=== PATIENT | female | born 2000 | race Hispanic/Latino ===

== ENCOUNTER 2020-08-19 13:32 | Emergency (ER) | payer BC ==
--- OUTSIDE RECORDS SUMMARY | 2020-08-19 13:35 | XMS REPORT | Continuity of Care Document ---
:2000 Author Organization [facility] t Address [address] [place] [address] Care Team Providers Name Role Phone Lab, Fam Pob I Attending Clinician Unavailable Elizabeth WOLFE, H Attending Clinician Jamarcus TONY, T Attending Clinician Unavailable Pcp, Does Not Have A Attending Clinician Problems This patient has no known problems. Allergies, Adverse Reactions, Alerts This patient has no known allergies or adverse reactions. Medications This patient has no known medications. Procedures This patient has no known procedures. Encounters Start End Encounter Admission Attending Care Care Encounter Source Date/Time Date/Time Type Type Clinicians Facility Department ID 2020-05-20 2020-05-20 Laboratory Lab, [facility] [id number] 11:18:14 11:38:14 Only Fam Pob I Health [id number] [place] [id number] Professio [phone] nal 044 [address] One 2020-05-02 2020-05-02 Laboratory Lab, [facility] 1..[id number] 16:02:38 16:22:38 Only Fam Pob I Health [id number] [place] [id number] Professio [phone] nal 044 [address] One 2020-04-22 2020-04-22 Laboratory Lab, [facility] [id number] 13:18:43 13:38:43 Only Fam Pob I Health [id number] [place] [id number] Professio [phone] nal 044 Office [address] One 2020-04-05 2020-04-05 Letter RANDEE Johnson [id number] 00:00:00 00:00:00 (Out) Jamie VAUGHN [id number] HOSPITAL [id number] 2020-04-05 2020-04-05 Telephone Lab, [facility] [id number] 00:00:00 00:00:00 Fam Pob I Health [id number] [place] [id number] Professio [phone] nal 044 Office [address] One 2020-04-02 2020-04-02 Letter RANDEE Ricketts [id number] 00:00:00 00:00:00 (Out) Angelita VAUGHN [id number] HOSPITAL [id number] 2020-04-02 2020-04-02 Telephone PcpRANDEE [id number] 00:00:00 00:00:00 Patient JOHANA [id number] Does Not HOSPITAL [id number] Have A [id number] 2020-03-31 2020-03-31 Laboratory Lab, [facility] [id number] 16:47:48 17:07:48 Only Fam Pob I Health [id number] [place] [id number] Professio [phone] nal 044 Office [address] One Results This patient has no known results.
--- NOTE | 2020-08-19 15:13 | RAD REPORT ---
EXAM DESCRIPTION: RAD - Chest Pa And Lat (2 Views) - 08/19/2020 2:19 pm CLINICAL HISTORY: CHEST PAIN COMPARISON: None TECHNIQUE: Frontal and lateral views of the chest were obtained. FINDINGS: The lungs are clear. Heart size is normal and central vasculature is within normal limit s. No pleural effusion or pneumothorax seen. No acute bony finding noted. No aortic abnormality. IMPRESSION: No acute cardiopulmonary process.
[2020-08-19 16:24] LABS: Absolute Lymphocytes (CBC) 1.5 K/uL (0.7-4.9); Basophils % 0.7 % (0-1.3); Hematocrit 41.3 % (36.0-45.0); Lymphocytes % 29.5 % (15.3-44.8); MPV 8.3 fL (7.6-11.3); RBC Red Blood Cell Count 4.41 M/uL (3.86-4.86)
[2020-08-19 16:43] LABS: BUN Blood Urea Nitrogen 9 mg/dL (7-18); Bicarbonate 29 mmol/L (21-32); Glucose Level 90 mg/dL (74-106); Sodium Level 141 mmol/L (136-145); Troponin (Emerg Dept Use Only) < 0.02 ng/mL (0.0-0.045)
--- NOTE | 2020-08-19 17:10 | EDPHYS ---
Physician Documentation [facility] Name: Terrance Ko Age: 19 yrs Sex: Female : 2000 Arrival Date: 08/19/2020 Time: 13:35 Bed 14 Private MD: ED Physician Hussein Little HPI: 08/19 17:13 This 19 yrs old Female presents to ER via Ambulatory with complaints of Chest kb Pain. 17:14 The patient or guardian reports chest pain that is located primarily in the anterior kb chest wall, left. The pain does not radiate. Associated signs and symptoms: The patient has no apparent associated signs or symptoms. The chest pain is described as sharp. Duration: The patient or guardian reports multiple episodes, that are intermittent, with no pattern. Modifying factors: The symptoms are alleviated by nothing. the symptoms are aggravated by nothing. Severity of pain: At its worst the pain was moderate in the emergency department the pain has resolved. The patient has not experienced similar symptoms in the past. The patient has not recently seen a physician. Pt reports intermittent sharp pains to left side of chest that last a few minutes at a time. Pains started on 07/19/20. Last occurrence was yesterday. No pains today. no associated symptoms. Pt reports she has been under a lot of stress lately. No medical history. Father had MA in February 2020. Historical: - Allergies: 13:46 No Known Allergies; tw2 - Home Meds: 13:46 None [Active]; tw2 - PMHx: 13:46 None; tw2 - PSHx: 13:46 None; tw2 - Immunization history:: Adult Immunizations. - Social history:: Smoking status: . ROS: 17:13 Constitutional: Negative for fever, chills, and weight loss, Respiratory: Negative for kb shortness of breath, cough, wheezing, and pleuritic chest pain, Abdomen/GI: Negative for abdominal pain, nausea, vomiting, diarrhea, and constipation, MS/Extremity: Negative for injury and deformity, Skin: Negative for injury, rash, and discoloration, Neuro: Negative for headache, weakness, numbness, tingling, and seizure. 17:13 Cardiovascular: Positive for chest pain, Negative for edema, orthopnea, palpitations, paroxysmal nocturnal dyspnea. Exam: 17:13 Constitutional: This is a well developed, well nourished patient who is awake, alert, kb and in no acute distress. Head/Face: Normocephalic, atraumatic. Chest/axilla: Normal chest wall appearance and motion. Cardiovascular: Regular rate and rhythm with a normal S1 and S2. No gallops, murmurs, or rubs. No pulse deficits. Respiratory: Respirations even and unlabored. No increased work of breathing, no retractions or nasal flaring. Abdomen/GI: Soft, non-tender. No distention Skin: Warm, dry with normal turgor. Normal color. MS/ Extremity: Pulses equal, no cyanosis. Neurovascular intact. Full, normal range of motion. Neuro: Awake and alert, GCS 15, oriented to person, place, time, and situation. Moves all extremities. Normal gait. 17:13 ECG was reviewed by the Attending Physician. Vital Signs: 13:42 BP 129 / 90; Pulse 74; Resp 18; Temp 97.9(TE); Pulse Ox 100% on R/A; Weight 68.04 kg tw2 (R); 15:27 BP 136 / 70; Pulse 78; Resp 14; Pulse Ox 99% on R/A; vg1 16:24 BP 129 / 73; Pulse 74; Resp 14; Pulse Ox 100% on R/A; vg1 17:41 BP 125 / 78; Pulse 80; Resp 14; Pulse Ox 100% on R/A; vg1 MDM: 15:23 Patient medically screened. kb 17:11 Data reviewed: vital signs, nurses notes. Data interpreted: Pulse oximetry: on room air kb is 100 %. Interpretation: normal. 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 08/19 15:43 Order name: CBC with Diff; Complete Time: 16:28 kb 08/19 15:43 Order name: Basic Metabolic Panel; Complete Time: 16:48 kb 08/19 13:48 Order name: EKG; Complete Time: 13:49 kb 08/19 13:48 Order name: Chest Pa And Lat (2 Views) XRAY; Complete Time: 15:23 kb 08/19 15:43 Order name: Troponin (emerg Dept Use Only); Complete Time: 16:48 kb 08/19 15:43 Order name: D-Dimer; Complete Time: 16:41 kb 08/19 13:48 Order name: EKG - Nurse/Tech; Complete Time: 15:28 kb EC:13 Rate is 84 beats/min. Rhythm is regular. QRS [place] is Normal. [place] interval is normal at kb 144 msec. QRS interval is normal at 76 msec. QT interval is normal at 340 msec. Administered Medications: No medications were administered Disposition: 08/20 08:01 Co-signature as Attending Physician, Hussein Little MD I agree with the assessment and kdr plan of care. Disposition: 08/19/20 17:10 Discharged to Home. Impression: Chest pain, unspecified. - Condition is Stable. - Discharge Instructions: Nonspecific Chest Pain, [id number]. - Medication Reconciliation Form, Thank You Letter, Antibiotic Education, Prescription Opioid Use form. - Follow up: Emergency Department; When: As needed; Reason: Worsening of condition. Follow up: Private Physician; When: 2 - 3 days; Reason: Recheck today's complaints, Continuance of care, Re-evaluation by your physician. Signatures: Dispatcher [employer] EDND Brittnee Colin, FIELD REPRESENTATIVE-C FIELD REPRESENTATIVE-Hussein Fuentes MD MD kdr Sandy Ibrahim, RN RN tw2 Chelita Villanueva RN RN vg1 Corrections: (The following items were deleted from the chart) 08/19 17:41 17:10 08/19/2020 17:10 Discharged to Home. Impression: Chest pain, unspecified. vg1 Condition is Stable. Forms are Medication Reconciliation Form, Thank You Letter, Antibiotic Education, Prescription Opioid Use. Follow up: Emergency Department; When: As needed; Reason: Worsening of condition. Follow up: Private Physician; When: 2 - 3 days; Reason: Recheck today's complaints, Continuance of care, Re-evaluation by your physician. kb
--- NOTE | 2020-08-19 17:10 | ER ---
Nurse's Notes [facility] Name: Terrance Ko Age: 19 yrs Sex: Female : 2000 Arrival Date: 08/19/2020 Time: 13:35 Bed 14 Private MD: Diagnosis: Chest pain, unspecified Presentation: 08/19 13:42 Chief complaint: Patient states: i have chest pain that started July 19, i felt tw2 pressure in the middle of my chest, it went away and then August 06 i got a dry cough and sore throat, and the sore throat went away, i took mucinex and drinking hot tea, where my heart is i got this twinge and it felt uncomfortable, and it happened again last night for 2 minutes. Coronavirus screen: At this time, the client does not indicate any symptoms associated with coronavirus-19. Ebola Screen: Patient denies travel to an Ebola-affected area in the 21 days before illness onset. Initial Sepsis Screen: Does the patient meet any 2 criteria? No. Patient's initial sepsis screen is negative. Does the patient have a suspected source of infection? No. Patient's initial sepsis screen is negative. Risk Assessment: Do you want to hurt yourself or someone else? Patient reports no desire to harm self or others. Onset of symptoms was August 19, 2020. 13:42 Method Of Arrival: Ambulatory tw2 13:42 Acuity: POLI 3 tw2 Triage Assessment: 13:46 General: Appears in no apparent distress. slender, well groomed, Behavior is calm, tw2 cooperative, appropriate for age. Pain: Complains of pain in chest. Cardiovascular: Reports chest pain, "it goes away, but the most it last is like 5 minutes so right now it is fine". Historical: - Allergies: 13:46 No Known Allergies; tw2 - Home Meds: 13:46 None [Active]; tw2 - PMHx: 13:46 None; tw2 - PSHx: 13:46 None; tw2 - Immunization history:: Adult Immunizations. - Social history:: Smoking status: . Screenin:27 Abuse screen: Denies threats or abuse. Nutritional screening: No deficits noted. vg1 Tuberculosis screening: No symptoms or risk factors identified. Fall Risk No fall in past 12 months (0 pts). No secondary diagnosis (0 pts). IV access (20 points). Ambulatory Aid- None/Bed Rest/Nurse Assist (0 pts). Gait- Normal/Bed Rest/Wheelchair (0 pts) Mental Status- Oriented to own ability (0 pts). Total Whitten Fall Scale indicates No Risk (0-24 pts). Assessment: 15:26 General: Appears in no apparent distress. comfortable, Behavior is calm, cooperative. vg1 Pain: Denies pain. Complains of pain in anterior aspect of left upper chest Pain does not radiate. Pain currently is 0 out of 10 on a pain scale. Pain began about a month ago. Neuro: Level of Consciousness is awake, alert, obeys commands, Oriented to person, place, time, situation. Cardiovascular: Patient's skin is warm and dry. Respiratory: Airway is patent Respiratory effort is even, unlabored. GI: No signs and/or symptoms were reported involving the gastrointestinal system. : No signs and/or symptoms were reported regarding the genitourinary system. EENT: No signs and/or symptoms were reported regarding the EENT system. Derm: Skin is intact, is healthy with good turgor. Musculoskeletal: Circulation, motion, and sensation intact. 16:25 Reassessment: Patient appears in no apparent distress at this time. Patient and/or vg1 family updated on plan of care and expected duration. Pain level reassessed. Patient is alert, oriented x 3, equal unlabored respirations, skin warm/dry/pink. Patient is alert/active/playful, equal unlabored respirations, skin warm/dry/pink. Patient denies pain at this time. 17:40 Reassessment: Patient appears in no apparent distress at this time. Patient and/or vg1 family updated on plan of care and expected duration. Pain level reassessed. Patient is alert, oriented x 3, equal unlabored respirations, skin warm/dry/pink. Patient is alert/active/playful, equal unlabored respirations, skin warm/dry/pink. Patient denies pain at this time. Patient states feeling better. Vital Signs: 13:42 BP 129 / 90; Pulse 74; Resp 18; Temp 97.9(TE); Pulse Ox 100% on R/A; Weight 68.04 kg tw2 (R); 15:27 BP 136 / 70; Pulse 78; Resp 14; Pulse Ox 99% on R/A; vg1 16:24 BP 129 / 73; Pulse 74; Resp 14; Pulse Ox 100% on R/A; vg1 17:41 BP 125 / 78; Pulse 80; Resp 14; Pulse Ox 100% on R/A; vg1 ED Course: 13:35 Patient arrived in ED. mr 13:46 Triage completed. tw2 13:47 Arm band placed on. tw2 13:55 EKG completed in triage. Results shown to MD. tw2 14:19 Chest Pa And Lat (2 Views) XRAY In Process Unspecified. EDMS 15:22 Brittnee Colin FNP-C is PHCP. kb 15:22 Hussein Little MD is Attending Physician. kb 15:26 Chelita Villanueva, RN is Primary Nurse. vg1 15:27 Patient has correct armband on for positive identification. Bed in low position. Call vg1 light in reach. Side rails up X 1. Adult w/ patient. 15:28 front desk monitor on. Pulse ox on. NIBP on. vg1 15:28 Patient maintains SpO2 saturation greater than 95% on room air. vg1 16:10 Initial lab(s) drawn, by me, sent to lab. Inserted saline lock: 20 gauge in right em antecubital area, using aseptic technique. Blood collected. 17:40 No provider procedures requiring assistance completed. IV discontinued, intact, vg1 bleeding controlled, No redness/swelling at site. Pressure dressing applied. Administered Medications: No medications were administered Outcome: 17:10 Discharge ordered by . kb 17:41 Discharged to home ambulatory, with family. vg1 17:41 Condition: stable 17:41 Discharge instructions given to patient, Instructed on discharge instructions, follow up and referral plans. Demonstrated understanding of instructions, follow-up care. 17:41 Patient left the ED. vg1 Signatures: Dispatcher [employer] EDNM Brittnee Colin FNP-C FNP-Ceci Kika Panchal Dg Calle, RN RN em Sandy Ibrahim, CECILY RN tw2 Chelita Villanueva, CECILY RN vg1
[2020-08-19 17:46] VITALS: TEMP 97.9
[2020-08-19 17:49] VITALS: O2SAT 100
[2020-08-19 17:51] VITALS: BP 125/78
--- NOTE | 2020-08-21 07:27 | EKG ---
Test Date: 2020-08-19 Test Time: 13:52:39 Gasket Winder: JERONIMO MEASUREMENT RESULTS: Intervals: Rate: 84 NE: 144 QRSD: 76 QT: 340 QTc: 401 [place]: P: 70 NE: 144 QRS: 54 T: 22 INTERPRETIVE STATEMENTS: Normal sinus rhythm with sinus arrhythmia Normal ECG No previous ECG available for comparison Electronically Signed On 08-21-20 07:22:40 CDT by Hugh Buckley
== END 2020-08-19 17:41 | disposition home or self-care (01) ==
LOC: ER 13:32
DX: R07.9 Chest pain, unspecified (principal)
CPT/HCPCS: 36415; 71046; 80048; 84484; 85025; 85379; 93005; 99285